=== PATIENT | male | born 1980 | race Caucasian/White ===

== ENCOUNTER → 2016-05-14 | Outpatient (CLI) | payer OTHER ==
[~2016-05-14] MED LIST: ALPRAZOLAM0.5 MG PO; AMBIEN10 MG PO; AMBIEN5 MG PO; AMITRIPTYLINE H10 MG PO; CYMBALTA60 MG PO; ELAVIL50 MG PO; ENDOCET 5-3251 EACH PO; ESCITALOPRAM OX10 MG PO; GABAPENTIN800 MG PO; GLYCOTROL CAPS1 EACH PO; HYDROCODON-ACE1 EAC7 PO; MELOXICAM15 MG PO; NABUMETONE750 MG PO; NEURONTIN800 MG PO; OXECTA5 MG PO; PERCOCET 10/1 TABLET PO; SERTRALINE HCL50 MG PO; XANAX0.5 MG PO; ZANTAC300 MG PO; ZOFRAN ODT4 MG PO
== END | disposition home or self-care (01) ==
LOC: NUC 07:22
DX: R68.81 Early satiety (principal)
CPT/HCPCS: 78264; A9541